=== PATIENT | male | born 1965 | race Two or more races ===

== ENCOUNTER → 2016-12-23 | Outpatient (CLI) | payer MEDICARE, OTHER ==
--- NOTE | 2016-12-23 16:31 | RADRPT ---
PROCEDURE: CT Chest. CLINICAL INDICATION: Dyspnea and shortness of breath. Weight loss TECHNIQUE: CT scan of the chest without contrast was performed on the [employer] volumetric [address] [facility] without contrast. Coronal and sagittal reformatted images were obtained from the axial source images. The CTDI vol is 13.84 mGy and the DLP is 575.75 mGy-cm. COMPARISON: None. FINDINGS: The lungs are clear. No focal opacification, effusion, pneumothorax, edema, or nodules are seen. T here is no acute infiltrate. An enlarged lymph node is seen in the prevascular space measuring appr oximately 1.6 cm in short axis. The remainder of the mediastinum and hilum are unremarkable without evidence for mass or lymphadenopathy. The vascular structures of the mediastinum are normal in co urse and caliber. The heart size is normal without evidence for pericardial thickening or effusion. The axillary regions, subpectoral regions, and supraclavicular regions are all unremarkable. The 2 mm nonobstructing calculus in the upper pole of the left kidney is seen. Imaging obtained through t he upper abdomen reveals no acute abnormality. The osseous structures are intact. No osteolytic or osteoblastic lesion is detected. IMPRESSION: 1. Enlarged prevascular space lymph node which may be inflammatory/infectious in nature versus neop lastic. Consider further evaluation with a PET scan as clinically warranted. 2. Otherwise, no acute pathology in the chest. 3. 2 mm nonobstructing left renal calculus. RPTAT: [facility] Physician Gregory Date Time Electronically viewed and signed by Physician Gregory on 12/23/2016 16:31 /
--- NOTE | 2016-12-23 16:35 | RADRPT ---
PROCEDURE: CT abdomen and pelvis without IV contrast. CLINICAL INDICATION: Abdominal pain with history of weight loss TECHNIQUE: CT scan of the abdomen and pelvis without contrast was performed on the [employer] volumetric [address] scanner. The patient was scanned without intravenous contrast. Coronal and sagittal refo rmatted images were obtained from the axial source images. The CTDI vol is 10.7 mGy and the DLP is 7 01.22 mGy-cm. COMPARISON: None. FINDINGS: CT abdomen: The lung bases are clear. The heart size is not enlarged and is without pericardial thickening or e ffusion. The liver is normal in size and density and is without focal mass or intrahepatic biliary dilatation . The spleen is normal in size and homogeneous in density. The stomach is grossly unremarkable. T he pancreas as visualized is normal. The gallbladder and biliary tree are unremarkable and there is no evidence for common bile duct dilatation. The adrenal glands are symmetric and normal. The kid neys are symmetrically unremarkable as well. Tiny nonobstructing bilateral renal calculi are seen me asuring approximately 2 mm in size. No ureteral calculus or obstructive uropathy or mass lesion is s een. The aorta is of normal in caliber. There is no retroperitoneal lymphadenopathy. The shashi hepatis region is clear. The small and large bowel and mesentery, as visualized, are unremarkable. The norm al appendix is identified. CT pelvis: The pelvic organs are normal. The pelvic sidewalls and inguinal regions are clear. No pelvic mass, lymphadenopathy, or free fluid is seen. No acute inflammation is seen. The urinary bladder is wit hin normal limits. The surrounding osseous structures are unremarkable. No osteolytic or osteoblastic lesion is detect ed. IMPRESSION: 1. No acute pathology in the abdomen and pelvis. 2. Tiny nonobstructing bilateral renal calculi. RPTAT: [facility] Physician Gregory Date Time Electronically viewed and signed by Physician Gregory on 12/23/2016 16:35 /
== END | disposition home or self-care (01) ==
LOC: C/S 09:04 → EDSEX 09:04
PROVIDERS: ATTEND Internal Medicine
DX: R63.4 Abnormal weight loss (principal); R10.9 Unspecified abdominal pain; R59.9 Enlarged lymph nodes, unspecified
CPT/HCPCS: 71250; 74176